=== PATIENT | female | born 1930 | race Caucasian/White ===

== ENCOUNTER 2017-04-04 12:18 | Emergency (ER) | payer OTHER ==
[~2017-04-04] VITALS: Ht 162.6 cm; Wt 77.7 kg
[~2017-04-04 12:18] MED LIST: MOTRIN600 MG PO; NOHOMEMEDS; PYRIDIUM100 MG PO
[2017-04-04 13:55] LABS: HEMATOCRIT 40.2 % (36.0-46.0); MCHC 32.8 G/DL (30.0-36.0); MCV 97.6 FL (83-99); MEAN PLAT.VOLUME 10.6 uM^3 (9.5-12.4); PLATELET COUNT 195 K/uL (156-360); RBC DIS.WIDTH-CV 12.3 % (11.8-14.6); RBC DIS.WIDTH-SD 44.5 % (39-53); RED BLOOD COUNT 4.12 M/uL (3.80-5.20); WHITE BLOOD COUNT 7.1 K/uL (4.1-10.2)
[2017-04-04 14:06] LABS: CHLORIDE 103 mEq/L (99-109); POTASSIUM 4.4 mEq/L (3.7-5.4); SODIUM 141 mEq/L (136-147)
[2017-04-04 14:08] LABS: GLUCOSE 80 mg/dL (70-99)
[2017-04-04 14:09] LABS: ANION GAP 10 MEQ/L (2-14)
[2017-04-04 14:12] LABS: GFR ESTIMATE (CALCULATED) 56 mL/min/
[2017-04-04 14:13] LABS: UREA NITROGEN (BUN) 26 mg/dL (9-23)
[2017-04-04 14:19] LABS: TROP-I INTERPRETATION NEGATIVE; TROPONIN-I 0.04 ng/mL (0.0-0.30)
[2017-04-04 16:54] LABS: TROP-I INTERPRETATION NEGATIVE; TROPONIN-I 0.05 ng/mL (0.0-0.30)
[2017-04-04 17:47] VITALS: BP 165/98
== END 2017-04-04 18:10 | disposition home or self-care (01) ==
LOC: EME 12:18
PROVIDERS: Emergency Medicine
DX: R07.89 Other chest pain (principal); Z87.891 Personal history of nicotine dependence; Z95.0 Presence of cardiac pacemaker
CPT/HCPCS: 71020; 80048; 84484; 85027; 93005; 99281; 99284

== ENCOUNTER 2017-12-21 13:25 | Observation (INO) | payer OTHER ==
[~2017-12-21] VITALS: Ht 160 cm; Wt 80.7 kg
[2017-12-21 14:39] LABS: HEMATOCRIT 35.9 % (36.0-46.0); HEMOGLOBIN 12.4 G/DL (11.9-15.5); MCH 33.2 PG (29.0-34.0); MCHC 34.5 G/DL (30.0-36.0); PLATELET COUNT 172 K/uL (156-360); RBC DIS.WIDTH-CV 12.8 % (11.8-14.6); RBC DIS.WIDTH-SD 45.4 % (39-53); RED BLOOD COUNT 3.74 M/uL (3.80-5.20)
[2017-12-21 14:49] LABS: CHLORIDE 97 mEq/L (99-109); POTASSIUM 4.4 mEq/L (3.7-5.4); SODIUM 133 mEq/L (136-147)
[2017-12-21 14:50] LABS: GLUCOSE 105 mg/dL (70-99)
[2017-12-21 14:54] LABS: CREATININE 0.9 mg/dL (0.6-1.3); GFR ESTIMATE (CALCULATED) > 59 mL/min/
[2017-12-21 14:55] LABS: UREA NITROGEN (BUN) 14 mg/dL (9-23)
[2017-12-21 15:04] LABS: TROP-I INTERPRETATION NEGATIVE; TROPONIN-I 0.02 ng/mL (0.0-0.30)
[2017-12-21] MEDS ORDERED: AMINO ACID1 EACH PO (17:59)
[2017-12-21] MEDS ORDERED: CYANOCOBALAM1000 MCG PO (18:00)
[2017-12-21] MEDS ORDERED: VITAMIN B COMP1 EACH PO (18:00)
[2017-12-21] MEDS ORDERED: VITAMIN A10000 UNIT PO (18:01)
[2017-12-21] MEDS ORDERED: VITAMIN D31000 UNI2 PO (18:01)
[2017-12-21] MEDS ORDERED: VITAMIN C500 M1 PO (18:01)
[2017-12-21] MEDS ORDERED: MAGNESIUM250 MG PO (18:02)
[2017-12-21] MEDS ORDERED: POTASSIUM-9999 MG PO (18:02)
[2017-12-21] MEDS ORDERED: CALCIUM 600 +1 EAC2 PO (18:02)
[2017-12-21] MEDS ORDERED: CALCIUM 500 MG1 EACH PO (18:03)
[2017-12-21 19:45] LABS: ALBUMIN 4.1 g/dL (3.2-4.8)
[2017-12-21 19:48] LABS: TOTAL PROTEIN 6.4 g/dL (6.4-8.3)
[2017-12-21 19:50] LABS: TOTAL BILIRUBIN 0.8 mg/dL (0.0-1.0)
[2017-12-21 19:51] LABS: ALKALINE PHOSPHATASE 57 IU/L (3-129)
[2017-12-21 19:53] LABS: AST (GOT) 38 IU/L (2-34); DIRECT BILIRUBIN 0.3 mg/dL (0.0-0.3)
[2017-12-21 19:54] LABS: ALT (GPT) 22 IU/L (3-49); LIPASE 29 U/L (1.0-51.0)
[2017-12-21 20:05] VITALS: BP 213/95
[2017-12-21 21:18] LABS: TROP-I INTERPRETATION NEGATIVE; TROPONIN-I 0.03 ng/mL (0.0-0.30)
[2017-12-21 22:15] VITALS: BP 186/77
[2017-12-21 23:23] VITALS: BP 183/78
[2017-12-22 03:14] LABS: HEMATOCRIT 37.6 % (36.0-46.0); HEMOGLOBIN 12.9 G/DL (11.9-15.5); MCH 33.2 PG (29.0-34.0); MCHC 34.3 G/DL (30.0-36.0); MCV 96.7 FL (83-99); PLATELET COUNT 162 K/uL (156-360); RBC DIS.WIDTH-CV 12.9 % (11.8-14.6); RBC DIS.WIDTH-SD 45.8 % (39-53); RED BLOOD COUNT 3.89 M/uL (3.80-5.20); WHITE BLOOD COUNT 5.1 K/uL (4.1-10.2)
[2017-12-22 03:25] LABS: CHLORIDE 106 mEq/L (99-109); POTASSIUM 3.9 mEq/L (3.7-5.4); SODIUM 138 mEq/L (136-147)
[2017-12-22 03:27] LABS: GLUCOSE 91 mg/dL (70-99)
[2017-12-22 03:30] LABS: CREATININE 0.9 mg/dL (0.6-1.3); GFR ESTIMATE (CALCULATED) > 59 mL/min/
[2017-12-22 03:31] LABS: UREA NITROGEN (BUN) 15 mg/dL (9-23)
[2017-12-22 03:36] LABS: TROP-I INTERPRETATION NEGATIVE; TROPONIN-I 0.03 ng/mL (0.0-0.30)
[2017-12-22 03:45] VITALS: BP 171/72
[2017-12-22 07:33] VITALS: BP 143/76
[2017-12-22 08:58] LABS: HDL CHOLESTEROL 60 MG/DL (Desirable>=50); LDL CHOLESTEROL 132 mg/dL (Desirable<100); NON-HDL CHOLESTEROL 140 mg/dL (Desirable<160); TOTAL CHOLESTEROL 200 mg/dL (Desirable<200); TRIGLYCERIDES 40 MG/DL (Normal: <150)
[2017-12-22 11:51] VITALS: BP 121/58
[2017-12-22] MEDS ORDERED: NITROSTAT0.4 MG SL (12:20)
[2017-12-22] MEDS ORDERED: NIFEDIPINE ER30 MG PO (12:20)
[2017-12-22] MEDS ORDERED: PANTOPRAZOLE SO40 MG PO (12:21)
[2017-12-22 15:39] VITALS: BP 134/64
== END 2017-12-22 17:31 | disposition home or self-care (01) ==
LOC: EME 13:25 → EDOF 19:13 → 4SOUTH 19:13 → EDOF 19:13 → ENRESERV 19:18 → CANRESERV 19:18 → ENRESERV 19:20 → 4SOUTH 19:52
PROVIDERS: Hospitalist
DX: R07.89 Other chest pain (principal); R13.10 Dysphagia, unspecified; R63.4 Abnormal weight loss; K22.9 Disease of esophagus, unspecified; I10 Essential (primary) hypertension; I48.0 Paroxysmal atrial fibrillation; Z91.14 Patient's other noncompliance with medication regimen; K90.41 Non-celiac gluten sensitivity; I49.5 Sick sinus syndrome; Z95.0 Presence of cardiac pacemaker; E78.5 Hyperlipidemia, unspecified; I44.7 Left bundle-branch block, unspecified; R94.31 Abnormal electrocardiogram [ECG] [EKG]; Z87.891 Personal history of nicotine dependence; Z90.710 Acquired absence of both cervix and uterus; Z90.79 Acquired absence of other genital organ(s); Z90.722 Acquired absence of ovaries, bilateral; Z80.3 Family history of malignant neoplasm of breast; Z88.6 Allergy status to analgesic agent
CPT/HCPCS: 70450; 70491; 71046; 71275; 80048; 80061; 80076; 83690; 84484; 85027; 93005; 93306; 99281; 99284; G0378; J1644; J7040